=== PATIENT | female | born 1945 | race Two or more races ===

== ENCOUNTER 2017-12-20 18:13 | Inpatient (IN) | payer OTHER ==
[~2017-12-20] VITALS: Ht 147.3 cm; Wt 70.4 kg
[2017-12-20 19:10] LABS: Basophils # (auto) 0 uL; Basophils % (auto) 0.7 % (0.0-2.0); Eosinophils # (auto) 0.2 uL; Eosinophils % (auto) 2.7 % (0.0-7.0); Hematocrit 38.6 % (36.0-46.0); Lymphocytes # (auto) 1.6 uL; Lymphocytes % (auto) 28.9 % (10.0-50.0); Mean Corpuscular Hemoglobin 28.3 pg (28.0-32.0); Mean Corpuscular Hgb Conc. 33.7 g/dL (32.0-36.0); Monocytes # (auto) 0.4 uL; Monocytes % (auto) 6.9 % (0.0-12.0); Neutrophils # (auto) 3.4 uL; Neutrophils % (auto) 60.8 % (37.0-80.0); Nucleated Red Blood Cells % 0.1 %; Platelet Count (auto) 237 10^3/uL (140-450); White Blood Cell 5.6 10^3/uL (4.4-10.8)
[2017-12-20 19:28] LABS: Albumin 3.7 g/dL (3.4-5.0); BUN/Creatinine Ratio 19.4; Bilirubin, Total 0.3 mg/dL (0.2-1.0); Total Protein 7.3 g/dL (6.4-8.2)
[2017-12-20] MEDS ORDERED: PIPERACILLIN-TAZOB 3.375GM 100 ML IV ONE (22:30)
[2017-12-20 22:43] LABS: Urine Bacteria NONE SEEN /hpf (None Seen); Urine Blood Negative /uL (Negative); Urine Mucus FEW (None Seen); Urine Specific Gravity 1.023 (1.001-1.035); Urine WBC <1 /hpf (0 - 5)
[2017-12-20] MEDS ORDERED: ACETAMINOPHEN 500 MG TAB PO PRN (23:45)
[2017-12-20] MEDS ORDERED: ONDANSETRON HCL 4 MG/2 ML VIAL IV PRN (23:45)
[2017-12-20] MEDS ORDERED: VANCOMYCIN PER PHARMACY 0 MG IV SCH (23:45)
[2017-12-20] MEDS ORDERED: HYDROcodone-ACET 5/325MG TAB PO PRN (23:45)
[2017-12-20] MEDS ORDERED: LORazepam 0.5 MG TAB PO PRN (23:45)
[2017-12-20] MEDS ORDERED: TEMAZEPAM 15 MG CAP PO PRN (23:45)
[2017-12-20] MEDS ORDERED: MORPHINE SULF INJ 2 MG/ML SYRINGE 1ML IV PRN (23:45)
[2017-12-20] MEDS ORDERED: DEXTROSE (50%) 50ML SYRG IV PRN (23:45)
[2017-12-21 01:00] VITALS: BP 166/102
[2017-12-21] MEDS ORDERED: VANCOMYCIN 1GM/250ML 250 ML IV ONE (01:00)
[2017-12-21] MEDS: cloNIDine HCL 0.1 MG TAB PO PRN ×2 (04:37→12:48)
[2017-12-21 05:00] VITALS: BP 194/100
[2017-12-21] MEDS: PIPERACILLIN-TAZOB 3.375GM 100 ML IV SCH ×4 (05:55→23:57)
[2017-12-21 06:14] LABS: Basophils # (auto) 0 uL; Basophils % (auto) 0.9 % (0.0-2.0); Eosinophils # (auto) 0.2 uL; Eosinophils % (auto) 3.1 % (0.0-7.0); Hematocrit 37.1 % (36.0-46.0); Hemoglobin 12.6 g/dL (12.2-16.2); Mean Corpuscular Hemoglobin 28.2 pg (28.0-32.0); Mean Corpuscular Hgb Conc. 34.1 g/dL (32.0-36.0); Mean Corpuscular Volume 82.7 fL (80.0-100.0); Monocytes # (auto) 0.4 uL; Monocytes % (auto) 7.4 % (0.0-12.0); Neutrophils # (auto) 2.7 uL; Neutrophils % (auto) 50.6 % (37.0-80.0); Platelet Count (auto) 227 10^3/uL (140-450); Red Blood Cells 4.48 10^6/uL (4.0-5.20); Red Cell Distribution Width 13.7 % (11.8-14.3); White Blood Cell 5.3 10^3/uL (4.4-10.8)
[2017-12-21] MEDS ORDERED: hydrALAZINE HCL 20 MG/ML VL IV ONE (06:15)
[2017-12-21 06:35] LABS: Calcium 8.9 mg/dL (8.5-10.1); Potassium 3.5 mmol/L (3.5-5.1)
[2017-12-21] MEDS ORDERED: metFORMIN HYDROCHLORIDE 850 MG TAB PO SCH (07:00)
[2017-12-21 09:00] VITALS: BP 149/89
[2017-12-21 13:00] VITALS: BP 143/93
[2017-12-21] MEDS: glipiZIDE 5 MG TAB PO SCH ×2 (13:32→18:13)
[2017-12-21] MEDS ORDERED: LISINOPRIL 20 MG TAB PO ONE (14:15)
[2017-12-21 17:56] VITALS: BP 145/80
[2017-12-21] MEDS: metFORMIN HYDROCHLORIDE 500 MG TAB PO SCH (18:11)
[2017-12-21] MEDS: cloNIDine HCL 0.1 MG TAB PO SCH ×2 (18:12→23:58)
[2017-12-21] MEDS ORDERED: GLIP-115 PO (20:07)
[2017-12-21] MEDS ORDERED: ASPI-231 PO (20:07)
[2017-12-21] MEDS ORDERED: METF-370 PO (20:07)
[2017-12-21] MEDS ORDERED: CLON0.1T PO (20:07)
[2017-12-21] MEDS ORDERED: SIMV-8 PO (20:07)
[2017-12-21] MEDS ORDERED: LISI-646 PO (20:07)
[2017-12-21 21:47] VITALS: BP 123/73
[2017-12-21] MEDS: ATORVASTATIN 20 MG TAB PO SCH (22:00)
[2017-12-21] MEDS: LISINOPRIL 20 MG TAB PO SCH (22:00)
[2017-12-22] MEDS: VANCOMYCIN 1GM/250ML 250 ML IV SCH (01:21)
[2017-12-22 04:58] VITALS: BP 152/93
[2017-12-22] MEDS: cloNIDine HCL 0.1 MG TAB PO SCH ×4 (06:05→23:57)
[2017-12-22] MEDS: PIPERACILLIN-TAZOB 3.375GM 100 ML IV SCH ×4 (06:05→23:56)
[2017-12-22] MEDS: metFORMIN HYDROCHLORIDE 500 MG TAB PO SCH ×2 (06:39→18:09)
[2017-12-22] MEDS: glipiZIDE 5 MG TAB PO SCH ×2 (06:39→18:09)
[2017-12-22 07:26] LABS: Calcium 8.6 mg/dL (8.5-10.1); Potassium 3.8 mmol/L (3.5-5.1)
[2017-12-22 07:28] LABS: BUN/Creatinine Ratio 23.5
[2017-12-22 09:00] VITALS: BP 146/80
[2017-12-22] MEDS: ASPirin 81 mg TAB PO SCH (10:05)
[2017-12-22] MEDS: LISINOPRIL 20 MG TAB PO SCH ×2 (10:05→21:50)
[2017-12-22 13:00] VITALS: BP 141/92
[2017-12-22 17:12] VITALS: BP 135/66
[2017-12-22] MEDS: ATORVASTATIN 20 MG TAB PO SCH (21:49)
[2017-12-22 22:00] VITALS: BP 139/103
[2017-12-23] MEDS: VANCOMYCIN 1GM/250ML 250 ML IV SCH (01:21)
[2017-12-23 04:57] VITALS: BP 166/105
[2017-12-23] MEDS: PIPERACILLIN-TAZOB 3.375GM 100 ML IV SCH (06:00)
[2017-12-23] MEDS: metFORMIN HYDROCHLORIDE 500 MG TAB PO SCH ×2 (06:15→18:28)
[2017-12-23] MEDS: glipiZIDE 5 MG TAB PO SCH ×2 (06:15→18:27)
[2017-12-23] MEDS: cloNIDine HCL 0.1 MG TAB PO SCH ×3 (06:15→18:26)
[2017-12-23 09:07] VITALS: BP 153/94
[2017-12-23] MEDS: LISINOPRIL 20 MG TAB PO SCH ×2 (10:40→23:16)
[2017-12-23] MEDS: ASPirin 81 mg TAB PO SCH (10:40)
[2017-12-23] MEDS: ERTAPENEM SOD INJ 1 GM in SODIUM CHL 0.9% 50 ML IV SCH (12:37)
[2017-12-23 13:00] VITALS: BP 153/84
[2017-12-23 13:14] LABS: INR 0.99 (0.9-1.15); Prothrombin Time 10.6 sec (9.27-12.13)
[2017-12-23 16:50] VITALS: BP 150/79
[2017-12-23 22:00] VITALS: BP 164/90
[2017-12-23] MEDS: ATORVASTATIN 20 MG TAB PO SCH (23:15)
[2017-12-24] MEDS: cloNIDine HCL 0.1 MG TAB PO SCH ×5 (00:29→23:55)
[2017-12-24 05:00] VITALS: BP 154/88
[2017-12-24] MEDS: metFORMIN HYDROCHLORIDE 500 MG TAB PO SCH ×2 (06:57→17:56)
[2017-12-24] MEDS: glipiZIDE 5 MG TAB PO SCH ×2 (06:57→17:56)
[2017-12-24 07:06] LABS: Basophils # (auto) 0 uL; Basophils % (auto) 0.7 % (0.0-2.0); Eosinophils # (auto) 0.2 uL; Eosinophils % (auto) 3.7 % (0.0-7.0); Hemoglobin 12.8 g/dL (12.2-16.2); Lymphocytes # (auto) 2.7 uL; Lymphocytes % (auto) 40.8 % (10.0-50.0); Mean Corpuscular Hemoglobin 28.8 pg (28.0-32.0); Mean Corpuscular Hgb Conc. 34.6 g/dL (32.0-36.0); Mean Corpuscular Volume 83.3 fL (80.0-100.0); Monocytes # (auto) 0.5 uL; Neutrophils % (auto) 46.8 % (37.0-80.0); Nucleated Red Blood Cells % 0.1 %; Platelet Count (auto) 225 10^3/uL (140-450); Red Blood Cells 4.44 10^6/uL (4.0-5.20); Red Cell Distribution Width 13.8 % (11.8-14.3); White Blood Cell 6.5 10^3/uL (4.4-10.8)
[2017-12-24 07:17] LABS: BUN/Creatinine Ratio 28.4; Calcium 8.9 mg/dL (8.5-10.1)
[2017-12-24 08:00] VITALS: BP 151/83
[2017-12-24 09:00] VITALS: BP 151/83
[2017-12-24] MEDS: ASPirin 81 mg TAB PO SCH (10:40)
[2017-12-24] MEDS: ERTAPENEM SOD INJ 1 GM in SODIUM CHL 0.9% 50 ML IV SCH (10:40)
[2017-12-24] MEDS: LISINOPRIL 20 MG TAB PO SCH ×2 (10:41→22:06)
[2017-12-24 13:00] VITALS: BP 107/61
[2017-12-24 17:00] VITALS: BP 152/85
[2017-12-24 22:00] VITALS: BP 148/86
[2017-12-24] MEDS: ATORVASTATIN 20 MG TAB PO SCH (22:01)
[2017-12-25 05:00] VITALS: BP 126/72
[2017-12-25] MEDS: metFORMIN HYDROCHLORIDE 500 MG TAB PO SCH (06:45)
[2017-12-25] MEDS: cloNIDine HCL 0.1 MG TAB PO SCH ×2 (06:48→12:00)
[2017-12-25] MEDS: glipiZIDE 5 MG TAB PO SCH (06:49)
[2017-12-25 07:51] LABS: BUN/Creatinine Ratio 33.7; Calcium 9.4 mg/dL (8.5-10.1); Potassium 4.1 mmol/L (3.5-5.1)
[2017-12-25 08:50] VITALS: BP 117/71
[2017-12-25] MEDS: ASPirin 81 mg TAB PO SCH (10:00)
[2017-12-25] MEDS: LISINOPRIL 20 MG TAB PO SCH (10:00)
[2017-12-25] MEDS: ERTAPENEM SOD INJ 1 GM in SODIUM CHL 0.9% 50 ML IV SCH (10:00)
[2017-12-25 10:25] VITALS: BP 117/71
== END 2017-12-25 16:30 | disposition home or self-care (01) | DRG 638 ==
LOC: ER 18:13 → EAST 18:14
PROVIDERS: ADMIT Nurse Practitioner Family; ATTEND Internal Medicine
DX: E11.622 Type 2 diabetes mellitus with other skin ulcer (principal); L97.329 Non-pressure chronic ulcer of left ankle with unspecified severity; E11.65 Type 2 diabetes mellitus with hyperglycemia; Z79.84 Long term (current) use of oral hypoglycemic drugs; E78.5 Hyperlipidemia, unspecified; E03.9 Hypothyroidism, unspecified; I10 Essential (primary) hypertension; Z88.8 Allergy status to other drugs, medicaments and biological substances
CPT/HCPCS: 36415; 73700; 80048; 80053; 81001; 82962; 83036; 85025; 85610; 87040; 87077; 87186; 87205; 96365; 96366; 96367; 96375; J1335; J2543

== ENCOUNTER 2018-09-30 05:09 | Emergency (ER) | payer OTHER ==
[~2018-09-30] VITALS: Ht 154.9 cm; Wt 68.0 kg
[~2018-09-30 05:09] MED LIST: ASPI-231 PO; CLON0.1T PO; GLIP-115 PO; LISI-646 PO; METF-370 PO; SIMV-8 PO
[2018-09-30] MEDS ORDERED: SODIUM CHLORIDE 0.9% 1,000 ML IV ONE ×2 (06:54)
[2018-09-30] MEDS ORDERED: cloNIDine HCL 0.1 MG TAB PO ONE (07:00)
[2018-09-30 07:22] LABS: Urine WBC None Seen /hpf (0 - 5)
[2018-09-30 07:39] LABS: Urine Bacteria NONE SEEN /hpf (None Seen); Urine Blood Negative /uL (Negative); Urine Specific Gravity 1.008 (1.001-1.035)
[2018-09-30 07:45] LABS: Basophils # (auto) 0.1 uL; Basophils % (auto) 1.2 % (0.0-2.0); Eosinophils # (auto) 0.1 uL; Eosinophils % (auto) 2.8 % (0.0-7.0); Hematocrit 39.8 % (36.0-46.0); Hemoglobin 13.6 g/dL (12.2-16.2); Lymphocytes # (auto) 1.5 uL; Lymphocytes % (auto) 31.3 % (10.0-50.0); Mean Corpuscular Hemoglobin 28.8 pg (28.0-32.0); Mean Corpuscular Hgb Conc. 34.1 g/dL (32.0-36.0); Mean Corpuscular Volume 84.5 fL (80.0-100.0); Monocytes # (auto) 0.3 uL; Monocytes % (auto) 6.4 % (0.0-12.0); Neutrophils # (auto) 2.8 uL; Neutrophils % (auto) 58.3 % (37.0-80.0); Platelet Count (auto) 237 10^3/uL (140-450); Red Blood Cells 4.71 10^6/uL (4.0-5.20); Red Cell Distribution Width 14.1 % (11.8-14.3); White Blood Cell 4.9 10^3/uL (4.4-10.8)
[2018-09-30 08:06] LABS: Albumin 3.9 g/dL (3.4-5.0); Anion Gap 10 (5-15); BUN/Creatinine Ratio 22.5; Blood Urea Nitrogen 18 mg/dL (7-18); Calcium 8.9 mg/dL (8.5-10.1); Carbon Dioxide 27 mmol/L (21-32); Chloride 106 mmol/L (98-107); GFR African American 90 mL/min; GFR Non-African American 75 mL/min; Glucose 151 mg/dL (74-106); Potassium 3.9 mmol/L (3.5-5.1); Sodium 143 mmol/L (136-145)
[2018-09-30 08:10] LABS: Alanine Aminotransferase 26 U/L (13-56); Alkaline Phosphatase 66 U/L (45-117); Aspartate Aminotransferase 22 U/L (15-37); Bilirubin, Total 0.2 mg/dL (0.2-1.0); Total Protein 7.5 g/dL (6.4-8.2)
[2018-09-30 09:00] VITALS: BP 156/99
[2018-09-30] MEDS: hydrALAZINE HCL 20 MG/ML VL IV ONE ×2 (09:02→09:06)
== END 2018-09-30 09:10 | disposition home or self-care (01) ==
LOC: EDBD 05:09 → ER 05:09
DX: I10 Essential (primary) hypertension (principal); E11.65 Type 2 diabetes mellitus with hyperglycemia; Z79.82 Long term (current) use of aspirin; Z87.891 Personal history of nicotine dependence; Z88.8 Allergy status to other drugs, medicaments and biological substances
CPT/HCPCS: 36415; 80053; 81001; 82962; 84484; 85025; 96361; 96374; 99283; J0360; J7030

== ENCOUNTER 2022-11-17 17:28 | Emergency (ER) | payer OTHER ==
[~2022-11-17] VITALS: Ht 147.3 cm; Wt 67.7 kg
[~2022-11-17 17:28] MED LIST changes: -ASPI-231 PO; +ASPI1TAB20 PO; -GLIP-115 PO; +GLIP5TAB12 PO; -LISI-646 PO; +LISI20TA56 PO; -SIMV-8 PO; +SIMV20TA20 PO
[2022-11-17] MEDS ORDERED: TETRACAINE HCL 0.5% OPTH(EYE) SOLN 4ML RIGHTEYE ONE (18:45)
[2022-11-17 18:46] VITALS: BP 183/94
[2022-11-17 19:54] LABS: Basophils # (auto) 0 10 ^3/uL (0-0.2); Basophils % (auto) 0.7 % (0.0-2.0); Eosinophils # (auto) 0.1 10 ^3/uL (0-0.8); Eosinophils % (auto) 1.1 % (0.0-7.0); Hematocrit 37.7 % (36.0-46.0); Hemoglobin 12.6 g/dL (12.2-16.2); Lymphocytes # (auto) 1.6 10 ^3/uL (0.4-5.4); Lymphocytes % (auto) 29.7 % (10.0-50.0); Mean Corpuscular Hemoglobin 28.4 pg (28.0-32.0); Mean Corpuscular Hgb Conc. 33.4 g/dL (32.0-36.0); Mean Corpuscular Volume 84.9 fL (80.0-100.0); Monocytes # (auto) 0.3 10 ^3/uL (0-1.3); Monocytes % (auto) 5.4 % (0.0-12.0); Neutrophils # (auto) 3.4 10 ^3/uL (1.6-8.6); Neutrophils % (auto) 63.1 % (37.0-80.0); Nucleated Red Blood Cells % 0.1 %; Red Blood Cells 4.44 10^6/uL (4.0-5.20); White Blood Cell 5.3 10^3/uL (4.4-10.8)
[2022-11-17 20:03] LABS: Albumin 4.3 g/dL (3.4-5.0); Calcium 9.4 mg/dL (8.5-10.1); Potassium 4.1 mmol/L (3.5-5.1)
[2022-11-17 20:06] LABS: BUN/Creatinine Ratio 19.1 (10.0-20.0); Bilirubin, Total 0.2 mg/dL (0.2-1.0); Total Protein 7.8 g/dL (6.4-8.2)
[2022-11-17] MEDS: cloNIDine HCL 0.1 MG TAB PO ONE ×2 (21:47→21:50)
[2022-11-17] MEDS ORDERED: cloNIDine HCL 0.1 MG TAB PO ONE (22:15)
[2022-11-17] MEDS ORDERED: GENT0.3S10 EACHEYE (22:24)
== END 2022-11-17 22:28 | disposition left against medical advice (07) ==
LOC: ER 17:28
DX: H11.31 Conjunctival hemorrhage, right eye (principal); I10 Essential (primary) hypertension; E11.65 Type 2 diabetes mellitus with hyperglycemia
CPT/HCPCS: 36415; 70450; 80053; 81002; 84484; 85025